=== PATIENT | male | born 1965 | race Caucasian/White ===

== ENCOUNTER 2017-09-17 22:12 | Emergency (ER) | payer OTHER ==
[~2017-09-17] VITALS: Ht 167.6 cm; Wt 107.2 kg
[2017-09-17 22:58] LABS: HEMATOCRIT 41.3 % (38.0-50.0); HEMOGLOBIN 14.5 G/DL (12.5-16.6); MCH 31.7 PG (29.0-34.0); MCHC 35.1 G/DL (30.0-36.0); MCV 90.2 FL (86-99); PLATELET COUNT 275 K/uL (156-360); RBC DIS.WIDTH-CV 12.1 % (11.8-14.6); RED BLOOD COUNT 4.58 M/uL (4.00-5.50); WHITE BLOOD COUNT 8.2 K/uL (4.1-10.2)
[2017-09-17 23:08] LABS: ALBUMIN 3.8 g/dL (3.2-4.8)
[2017-09-17 23:09] LABS: CHLORIDE 101 mEq/L (99-109); SODIUM 136 mEq/L (136-147)
[2017-09-17 23:11] LABS: GLUCOSE 84 mg/dL (70-99); TOTAL PROTEIN 6.6 g/dL (6.4-8.3)
[2017-09-17 23:13] LABS: TOTAL BILIRUBIN 0.6 mg/dL (0.0-1.0)
[2017-09-17 23:14] LABS: ALKALINE PHOSPHATASE 71 IU/L (3-129)
[2017-09-17 23:15] LABS: CREATININE 1.4 mg/dL (0.6-1.3); GFR ESTIMATE (CALCULATED) 57 mL/min/ (58.99-99999)
[2017-09-17 23:16] LABS: AST (GOT) 22 IU/L (2-34); UREA NITROGEN (BUN) 18 mg/dL (9-23)
[2017-09-17 23:16] LABS: APPEARANCE CLEAR ((CLEAR)); BILIRUBIN NEGATIVE; BLOOD NEGATIVE; COLOR STRAW ((YELLOW)); GLUCOSE (STRIP) NEGATIVE; KETONES NEGATIVE; LEUKOCYTES NEGATIVE; NITRITE NEGATIVE; PROTEIN (STRIP) NEGATIVE; SPECIFIC GRAVITY 1.012 (1.000-1.030); UCUL ADDED? NO; UROBILINOGEN 0.2 MG/DL (0.2-1.0)
[2017-09-17 23:17] LABS: ALT (GPT) 22 IU/L (3-49)
[2017-09-17 23:53] LABS: TROP-I INTERPRETATION NEGATIVE; TROPONIN-I < 0.01 ng/mL (0.0-0.30)
[2017-09-18 00:41] VITALS: BP 148/74
[2017-09-18 08:18] LABS: THYROTROPIN (TSH) 1.5 MIU/L (0.4-5.5)
== END 2017-09-18 00:41 | disposition home or self-care (01) ==
LOC: EME 22:12
PROVIDERS: Physician Assistant
DX: I95.1 Orthostatic hypotension (principal); J01.90 Acute sinusitis, unspecified; I45.4 Nonspecific intraventricular block; R94.31 Abnormal electrocardiogram [ECG] [EKG]; I10 Essential (primary) hypertension
CPT/HCPCS: 70450; 71046; 80053; 81003; 84443; 84484; 85027; 93005; 99281; 99284